=== PATIENT | male | born 1975 | race Hispanic/Latino ===

== ENCOUNTER 2025-03-15 14:11 | Emergency (ER) | payer SELFPAY ==
[~2025-03-15] VITALS: Ht 172.7 cm; Wt 75.0 kg
[2025-03-15 14:40] LABS: BILIRUBIN, URINE NEGATIVE (negative); BLOOD/HGB, URINE NEGATIVE (Negative); KETONE, URINE NEGATIVE (Negative); LEUK ESTERASE, URINE NEGATIVE (negative); NITRITE, URINE NEGATIVE (negative)
[2025-03-15 16:10] LABS: N. GONORRRHOEAE BY PCR NOT DETECTED (NOT DETECT)
[2025-03-15 16:58] VITALS: BP 126/88
== END 2025-03-15 16:58 | disposition home or self-care (01) ==
LOC: ED 14:11
PROVIDERS: Emergency Medicine
DX: N34.1 Nonspecific urethritis (principal)
CPT/HCPCS: 81003; 99283